=== PATIENT | male | born 1940 | race Caucasian/White ===

== ENCOUNTER 2020-01-30 08:52 | Outpatient (CLI) | payer MEDICARE, SELFPAY ==
--- NOTE | ~2020-01-30 | US_ITS ---
EXAMINATION: US carotid duplex BI DATE: 01/30/2020 10:02 INDICATION: Occlusion of left carotid artery. TECHNIQUE: Grayscale, color Doppler, and pulsed Doppler images of the cervical carotid arteries were obtained. The degree of vessel stenosis is placed in one of the following categories: normal, <50%, 5 0-69%, >=70% but less than near-occlusion, near-occlusion, or total occlusion. Note that percent sten osis relative to normal distal artery lumen diameter is indirectly measured from velocity measurement s as described by Bartolome, et al. Radiology 2003; 229:340-346. COMPARISON: None. FINDINGS: RIGHT: The right common carotid artery (CCA) peak systolic velocity (PSV) is 57 cm/s. The right internal car otid artery (ICA) PSV is 108 cm/s. The right ICA end-diastolic velocity (EDV) is 18 cm/s. The right I CA/CCA PSV ratio is 1.9. Grayscale and color Doppler images yield an estimate of <50% diameter reduct ion from plaque in the ICA. There is antegrade flow in the right vertebral artery. LEFT: The left CCA PSV is 43 cm/s. The left ICA is totally occluded. There is antegrade flow in the left ve rtebral artery. IMPRESSION: 1. <50% stenosis in the right internal carotid artery. 2. 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 Reviewed, dictated and finalized at location B.
== END 2020-01-30 08:53 | disposition home or self-care (01) ==
PROVIDERS: PCP Family Medicine
DX: I65.23 Occlusion and stenosis of bilateral carotid arteries (principal)
CPT/HCPCS: 93880

== ENCOUNTER 2021-01-09 12:54 | Outpatient (CLI) | payer MEDICARE, SELFPAY | END 2021-01-09 12:55 | disposition home or self-care (01) | LOC: ANHAUDIO 12:56 | PROVIDERS: PCP Family Medicine; Visit Provider Nurse Practitioner | DX: H91.90 Unspecified hearing loss, unspecified ear (principal) | CPT/HCPCS: 99199 ==

== ENCOUNTER 2021-01-14 09:23 | Outpatient (CLI) | payer MEDICARE, SELFPAY | END 2021-01-14 09:24 | disposition home or self-care (01) | LOC: ANHAUDIO 09:25 | PROVIDERS: PCP Family Medicine; Visit Provider Nurse Practitioner | DX: H90.3 Sensorineural hearing loss, bilateral (principal) | CPT/HCPCS: 92557; 92567 ==

== ENCOUNTER 2021-02-08 10:12 | Outpatient (CLI) | payer MEDICARE, SELFPAY ==
--- NOTE | ~2021-02-08 | US_ITS ---
EXAMINATION: US carotid duplex BI DATE: 02/08/2021 10:45 INDICATION: Bilateral carotid artery stenosis with bilateral carotid bruits TECHNIQUE: Grayscale, color Doppler, and pulsed Doppler images of the cervical carotid arteries were obtained. The degree of vessel stenosis is placed in one of the following categories: normal, <50%, 5 0-69%, >=70% but less than near-occlusion, near-occlusion, or total occlusion. Note that percent sten osis relative to normal distal artery lumen diameter is indirectly measured from velocity measurement s as described by Bartolome, et al. Radiology 2003; [id number]:[id number]. COMPARISON: 01/30/2020 FINDINGS: RIGHT: The right common carotid artery (CCA) peak systolic velocity (PSV) is 81 cm/s. The right internal car otid artery (ICA) PSV is 104 cm/s. The right ICA end-diastolic velocity (EDV) is 18 cm/s. The right I CA/CCA PSV ratio is 1.5. Grayscale and color Doppler images yield an estimate of <50% diameter reduct ion from plaque in the ICA. The external carotid artery (ECA) PSV is 146 cm/s. There is antegrade zachary w in the right vertebral artery. LEFT: The left CCA PSV is 85 cm/s. Persistent complete occlusion of the left internal carotid artery with s wirling high resistance flow at the left carotid bulb. The ECA PSV is 199 cm/s. There is antegrade fl ow in the left vertebral artery. IMPRESSION: 1. <50% stenosis in the right internal carotid artery. 2. 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 Reviewed, dictated and finalized at location A.
== END 2021-02-08 10:13 | disposition home or self-care (01) ==
LOC: ANHIMG 10:17
PROVIDERS: PCP Family Medicine
DX: I65.23 Occlusion and stenosis of bilateral carotid arteries (principal)
CPT/HCPCS: 93880

== ENCOUNTER 2021-08-06 08:28 | Outpatient (CLI) | payer MEDICARE, SELFPAY ==
--- NOTE | ~2021-08-06 | US_ITS ---
EXAMINATION: US aorta DATE: 08/06/2021 09:08 INDICATION: Abdominal aortic aneurysm without rupture TECHNIQUE: Grayscale, color Doppler, and pulsed Doppler images of the aorta and common iliac arteries were obtained. COMPARISON: 11/26/2018 FINDINGS: Maximum vascular dimensions are as follows: Proximal aorta: 2.7 cm Mid aorta: 2.6 cm Distal aorta: 3.5 cm Right common iliac artery: 1.5 cm Left common iliac artery: 1.6 cm There is a 3.5 x 2.5 cm fusiform aneurysm of the distal abdominal aorta with slight increase in trans verse dimension since the comparison examination. IMPRESSION: 1. 3.5 cm fusiform aneurysm of the distal abdominal aorta with increase in transverse dimensions comp [facility]. Reviewed, dictated and finalized at location A. TESTER IMPRESSION: 1. 3.5 cm fusiform aneurysm of the distal abdominal aorta with increase in ewing sverse dimensions comparison examination.
--- NOTE | ~2021-08-06 | US_ITS ---
EXAMINATION: US art doppler w press LE BI DATE: 08/06/2021 09:39 INDICATION: Peripheral vascular disease. TECHNIQUE: Segmental pressures and plethysmographic and Doppler waveforms of the brachial and lower e xtremity arteries were obtained. COMPARISON: None. FINDINGS: Right and left brachial artery pressures of 195 mm Hg and 186 mm Hg, respectively, are concordant (no rmal difference <= 30 mmHg). The right and left high-thigh pressure indices are unable to be obtained due to inability to occlude the vessels. The right ankle-brachial index (JORGE) is 1.07 (normal >= 0.9-1). The right great toe-brachial index (T BI) is 0.99 (normal >= 0.6-0.8). The right lower extremity segmental pressure gradients are unable to be obtained due to inability to occlude the vessels above the ankle (normal gradients <= 20-30 mmHg between adjacent levels on the same leg or the same levels on the two legs). Arterial waveforms are b iphasic with brisk systolic upstrokes throughout the arteries of the right lower limb. The left JORGE is 1.09. The left TBI is 0.78. The left lower extremity segmental pressure gradients are normal in the left lower leg. Arteries in the left thyroid were unable to be occluded. Arterial wave forms are biphasic with brisk systolic upstrokes throughout the arteries of the left lower limb. IMPRESSION: 1. Normal JORGE's and TBI's bilaterally. No significant occlusive disease. Reviewed, dictated and finalized at location A. 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
== END 2021-08-06 08:29 | disposition home or self-care (01) ==
LOC: ANHIMG 08:29
PROVIDERS: PCP Family Medicine; Visit Provider Family Medicine
DX: I71.4 Abdominal aortic aneurysm, without rupture (principal); I73.9 Peripheral vascular disease, unspecified
CPT/HCPCS: 76775; 93923

== ENCOUNTER 2022-01-31 07:48 | Outpatient (CLI) | payer MEDICARE, SELFPAY ==
--- NOTE | ~2022-01-31 | US_ITS ---
EXAMINATION: US aorta DATE: 01/31/2022 09:43 INDICATION: Abdominal aortic aneurysm TECHNIQUE: Grayscale, color Doppler, and pulsed Doppler images of the aorta and common iliac arteries were obtained. COMPARISON: 08/06/2021 FINDINGS: Maximum vascular dimensions are as follows: Proximal aorta: 2.0 cm Mid aorta: Not well demonstrated Distal aorta: 3.5 cm Right common iliac artery: 1.1 cm Left common iliac artery: 1.0 cm There is a stable fusiform infrarenal abdominal aortic aneurysm. IMPRESSION: 1. Stable fusiform infrarenal abdominal aortic aneurysm. Reviewed, dictated and finalized at location A.
[2022-01-31 08:10] LABS: Basophils Percent Auto 0.8 % (0.2-1.2); Eosinophils Absolute Auto 0.1 K/mm3 (0-0.3); Eosinophils Percent Auto 1.5 % (0-4.4); Hematocrit 46.6 % (42.0-52.0); Hemoglobin 14.4 g/dL (14.0-18.0); Immature Granulocyte Absolute 0.02 K/mm3 (0.00-0.031); Immature Granulocyte Percent A 0.4 % (0-0.5); Lymphocytes Absolute Auto 1.59 K/mm3 (0.9-3.2); Lymphocytes Percent Auto 30.2 % (18.3-44.2); Mean Corpuscular HGB Conc 30.9 g/dl (32-36); Mean Corpuscular Hemoglobin 34.3 pg (26-34); Mean Platelet Volume 10.6 fl (7.4-10.4); Monocytes Absolute Auto 0.4 K/mm3 (0.1-0.6); Monocytes Percent Auto 8.3 % (2.6-8.5); Neutrophils Absolute Auto 3.1 K/mm3 (1.3-6.7); Neutrophils Percent Auto 58.8 % (45.5-73.1); Platelet Count Result 139 k/mm3 (150-375); Red Cell Distribution Width 12.6 % (11.5-14.5); White Blood Count 5.3 K/mm3 (4.5-10.0)
[2022-01-31 08:19] LABS: Alanine Aminotransferase 33 U/L (6-50); Albumin Level 4.1 g/dL (3.5-5.1); Alkaline Phosphatase 79 U/L (38-126); Anion Gap 7 mmol/L (8-16); Aspartate Amino Transferase 37 U/L (17-59); Bilirubin,Total 0.6 mg/dL (0.2-1.3); Blood Urea Nitrogen 21 mg/dL (9-20); Calcium 9.8 mg/dL (8.4-10.2); Carbon Dioxide 26 mmol/L (22-30); Chloride 105 mmol/L (98-107); Cholesterol 145 mg/dL (0-200); Estimated Glomerular Filt Rate 58; Glucose 118 mg/dL (65-110); HDL Direct 35 mg/dL; Hemoglobin A1C 6.1 % (<5.7); Potassium 4.9 mmol/L (3.4-5.0); Sodium 138 mmol/L (137-145); Triglycerides 116 mg/dL (<150)
[2022-01-31 08:23] LABS: Platelet Estimate Adequate (Adequate)
[2022-01-31 08:24] LABS: Anisocytosis 1+ (NORMAL)
[2022-01-31 08:30] LABS: LDL Cholesterol Direct 71 mg/dL
[2022-01-31 08:50] LABS: Prostate Specific Antigen 0.9 ng/mL (< OR = 4.0)
[2022-01-31 08:59] LABS: Vitamin D 25 Hydroxy 78.8 ng/mL
== END 2022-01-31 07:49 | disposition home or self-care (01) ==
PROVIDERS: PCP Family Medicine; Visit Provider Family Medicine
DX: E78.5 Hyperlipidemia, unspecified (principal); Z12.5 Encounter for screening for malignant neoplasm of prostate; E53.8 Deficiency of other specified B group vitamins; R73.03 Prediabetes; E55.9 Vitamin D deficiency, unspecified; I12.9 Hypertensive chronic kidney disease with stage 1 through stage 4 chronic kidney disease, or unspecified chronic kidney disease; N18.31 Chronic kidney disease, stage 3a; I71.4 Abdominal aortic aneurysm, without rupture
CPT/HCPCS: 36415; 76775; 80053; 80061; 82306; 82607; 83036; 84153; 84443; 85025; G0103

== ENCOUNTER 2022-07-24 11:36 | Outpatient (CLI) | payer MEDICARE, SELFPAY ==
[2022-07-24 20:51] LABS: Alanine Aminotransferase 33 U/L (6-50); Albumin Level 4.2 g/dL (3.5-5.1); Alkaline Phosphatase 68 U/L (38-126); Anion Gap 2 mmol/L (8-16); Aspartate Amino Transferase 44 U/L (17-59); Bilirubin,Total 0.8 mg/dL (0.2-1.3); Blood Urea Nitrogen 31 mg/dL (9-20); Calcium 9.8 mg/dL (8.4-10.2); Carbon Dioxide 31 mmol/L (22-30); Chloride 102 mmol/L (98-107); Estimated Glomerular Filt Rate 45; Glucose 93 mg/dL (65-110); Potassium 5.1 mmol/L (3.4-5.0); Sodium 135 mmol/L (137-145)
[2022-07-24 22:34] LABS: Hemoglobin A1C 6.1 % (<5.7)
== END 2022-07-24 11:37 | disposition home or self-care (01) ==
LOC: ANHGOSHLAB 11:38
PROVIDERS: PCP Family Medicine; Visit Provider Family Medicine
DX: R73.03 Prediabetes (principal); I10 Essential (primary) hypertension
CPT/HCPCS: 36415; 80053; 83036

== ENCOUNTER 2023-02-02 14:20 | Outpatient (CLI) | payer MEDICARE, SELFPAY ==
[2023-02-02 19:05] LABS: Basophils Absolute Auto 0.1 K/mm3 (0.0-0.1); Basophils Percent Auto 0.8 % (0.2-1.2); Eosinophils Absolute Auto 0.1 K/mm3 (0-0.3); Eosinophils Percent Auto 1.6 % (0-4.4); Hematocrit 42.2 % (42.0-52.0); Hemoglobin 13.6 g/dL (14.0-18.0); Immature Granulocyte Absolute 0.02 K/mm3 (0.00-0.031); Immature Granulocyte Percent A 0.3 % (0-0.5); Lymphocytes Absolute Auto 1.31 K/mm3 (0.9-3.2); Mean Corpuscular HGB Conc 32.2 g/dl (32-36); Mean Corpuscular Hemoglobin 34.4 pg (26-34); Mean Corpuscular Volume 106.8 fl (80-100); Mean Platelet Volume 10.7 fl (7.4-10.4); Monocytes Absolute Auto 0.6 K/mm3 (0.1-0.6); Monocytes Percent Auto 9.6 % (2.6-8.5); Neutrophils Absolute Auto 4.2 K/mm3 (1.3-6.7); Neutrophils Percent Auto 66.7 % (45.5-73.1); Platelet Count Result 161 k/mm3 (150-375); Red Blood Count 3.95 M/mm3 (4.6-6.20); Red Cell Distribution Width 12.6 % (11.5-14.5); White Blood Count 6.2 K/mm3 (4.5-10.0)
[2023-02-02 19:31] LABS: Macrocytosis 1+ (NORMAL); Platelet Estimate Adequate (Adequate); Schistocytes None Seen (NORMAL)
[2023-02-02 19:55] LABS: Alanine Aminotransferase 55 U/L (6-50); Albumin Level 4.1 g/dL (3.5-5.1); Alkaline Phosphatase 83 U/L (38-126); Anion Gap 4 mmol/L (8-16); Aspartate Amino Transferase 59 U/L (17-59); Bilirubin,Total 0.5 mg/dL (0.2-1.3); Blood Urea Nitrogen 26 mg/dL (9-20); Calcium 9.6 mg/dL (8.4-10.2); Carbon Dioxide 30 mmol/L (22-30); Chloride 103 mmol/L (98-107); Estimated Glomerular Filt Rate 42; Glucose 125 mg/dL (65-110); Potassium 4.7 mmol/L (3.4-5.0); Sodium 137 mmol/L (137-145)
[2023-02-03 00:10] LABS: Hemoglobin A1C 6.1 % (<5.7)
[2023-02-05 15:50] LABS: Testosterone Free 20.5 pg/mL (30.0-135.0); Testosterone Total 103 ng/dL (250-1100)
== END 2023-02-02 14:21 | disposition home or self-care (01) ==
LOC: ANHGOSHLAB 14:22
PROVIDERS: PCP Family Medicine; Visit Provider Nurse Practitioner Family
DX: Z00.00 Encounter for general adult medical examination without abnormal findings (principal); I10 Essential (primary) hypertension; E29.1 Testicular hypofunction; Z13.29 Encounter for screening for other suspected endocrine disorder; R73.03 Prediabetes; Z13.1 Encounter for screening for diabetes mellitus
CPT/HCPCS: 36415; 80053; 83036; 84402; 84403; 84443; 85025

== ENCOUNTER 2023-08-10 13:45 | Outpatient (CLI) | payer MEDICARE, SELFPAY ==
[2023-08-10 18:34] LABS: Hematocrit 47.2 % (42.0-52.0); Hemoglobin 15.1 g/dL (14.0-18.0); Mean Corpuscular Hemoglobin 34.2 pg (26-34); Mean Corpuscular Volume 106.8 fl (80-100); Mean Platelet Volume 10.7 fl (7.4-10.4); Platelet Count Result 169 k/mm3 (150-375); Red Blood Count 4.42 M/mm3 (4.6-6.20); Red Cell Distribution Width 12.1 % (11.5-14.5); White Blood Count 7.8 K/mm3 (4.5-10.0)
[2023-08-10 19:54] LABS: Vitamin D 25 Hydroxy 56.7 ng/mL
[2023-08-10 22:00] LABS: Alanine Aminotransferase 41 U/L (6-50); Albumin Level 4.1 g/dL (3.5-5.1); Alkaline Phosphatase 85 U/L (38-126); Anion Gap 9 mmol/L (8-16); Aspartate Amino Transferase 53 U/L (17-59); Bilirubin,Total 0.7 mg/dL (0.2-1.3); Blood Urea Nitrogen 23 mg/dL (9-20); Calcium 10.1 mg/dL (8.4-10.2); Carbon Dioxide 26 mmol/L (22-30); Chloride 104 mmol/L (98-107); Estimated Glomerular Filt Rate 39; Glucose 103 mg/dL (65-110); Potassium 4.8 mmol/L (3.4-5.0); Sodium 139 mmol/L (137-145)
[2023-08-13 07:18] LABS: Testosterone Free 237.1 pg/mL (6.0-73.0)
== END 2023-08-10 13:46 | disposition home or self-care (01) ==
LOC: ANHGOSHLAB 13:47
PROVIDERS: PCP Family Medicine; Visit Provider Nurse Practitioner Family
DX: E55.9 Vitamin D deficiency, unspecified (principal); E53.8 Deficiency of other specified B group vitamins; E29.1 Testicular hypofunction; I12.9 Hypertensive chronic kidney disease with stage 1 through stage 4 chronic kidney disease, or unspecified chronic kidney disease; N18.30 Chronic kidney disease, stage 3 unspecified; Z13.21 Encounter for screening for nutritional disorder
CPT/HCPCS: 36415; 80053; 82306; 82607; 84402; 85027

== ENCOUNTER 2023-10-12 11:35 | Outpatient (CLI) | payer MEDICARE, SELFPAY ==
[2023-10-15 09:59] LABS: Testosterone Free 39.3 pg/mL (30.0-135.0); Testosterone Total 189 ng/dL (250-1100)
== END 2023-10-12 11:36 | disposition home or self-care (01) ==
LOC: ANHLAB 11:38
PROVIDERS: PCP Family Medicine; Visit Provider Nurse Practitioner Family
DX: E29.1 Testicular hypofunction (principal)
CPT/HCPCS: 36415; 84402; 84403

== ENCOUNTER 2023-10-29 12:49 | Outpatient (CLI) | payer MEDICARE, SELFPAY ==
--- NOTE | ~2023-10-29 | XR_ITS ---
EXAMINATION: XR lumbar spine 2-3V DATE: 10/29/2023 13:24 INDICATION: Sciatica, unspecified site. TECHNIQUE: 3 views of lumbar spine were obtained. COMPARISON: None. FINDINGS: There is 9 degrees dextrocurvature of lumbar spine. There is a chronic compression fracture of L4 on the left. There is mild chronic anterior wedging of L1 vertebral body. There are endplate o steophytes at all levels. There is mildly decreased disc height at L5-S1. There is multilevel severe facet joint osteoarthritis. IMPRESSION: 1. Mild lumbar spondylosis. Reviewed, dictated and finalized at location A. IMPRESSION: 1. Mild lumbar spondylosis.
--- NOTE | ~2023-10-29 | XR_ITS ---
EXAMINATION: XR knee LT 3V DATE: 10/29/2023 13:24 INDICATION: Anesthesia skin. TECHNIQUE: 3 views on 4 radiographs of left knee including weight-bearing views were obtained. COMPARISON: None. FINDINGS: Bone alignment is normal. No fracture. There is severe osteoarthritis of lateral compartmen t and mild osteoarthritis of medial and patellofemoral compartments. No knee joint effusion. IMPRESSION: 1. Severe left knee osteoarthritis. Reviewed, dictated and finalized at location A.
== END 2023-10-29 12:50 | disposition home or self-care (01) ==
PROVIDERS: PCP Family Medicine; Visit Provider Nurse Practitioner Family
DX: M17.12 Unilateral primary osteoarthritis, left knee (principal); M43.06 Spondylolysis, lumbar region; N18.31 Chronic kidney disease, stage 3a; R20.0 Anesthesia of skin; R20.2 Paresthesia of skin; Z86.73 Personal history of transient ischemic attack (TIA), and cerebral infarction without residual deficits
CPT/HCPCS: 72100; 73562

== ENCOUNTER 2023-11-18 13:01 | Outpatient (CLI) | payer MEDICARE, SELFPAY ==
--- NOTE | 2023-11-18 14:30 | NEURO_ITS ---
Impression: # Complains of numbness of lower extremities. Not diabetic. 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 # Needle/EMG exam with neurogenic changes but no fibs. # Clinical correlation recommended. Nerve Conduction Studies Anti Sensory Summary Table Stim Site NR Peak (ms) P-T Amp (?V) Site1 Site2 Delta-P (ms) Dist (cm) Hal (m/s) Left Sup Fibular Anti Sensory (Ant Lat Mall) NO RESPONSE 14 cm NR 14 cm Ant Lat Mall 16.0 Right Sup Fibular Anti Sensory (Ant Lat Mall) 14 cm 4.2 5.7 14 cm Ant Lat Mall 4.2 16.0 38 Left Sural Anti Sensory (Lat Mall) NO RESPONSE Calf NR Calf Lat Mall 16.0 Right Sural Anti Sensory (Lat Mall) Calf 3.9 10.4 Calf Lat Mall 3.9 16.0 41 Motor Summary Table Stim Site NR Onset (ms) O-P Amp (mV) Site1 Site2 Delta-0 (ms) Dist (cm) Hal (m/s) Left Peroneal Motor (Vastus Med) Ankle 4.1 1.3 Popit Ankle 10.7 45.0 42 Popit 14.8 0.8 Right Peroneal Motor (Vastus Med) Ankle 4.0 0.9 Popit Ankle 10.8 44.0 41 Popit 14.8 0.6 Left Tibial Motor (Abd Garibay Brev) Ankle 4.2 0.5 Knee Ankle 12.9 44.0 34 Knee 17.1 0.6 Right Tibial Motor (Abd Garibay Brev) Ankle 4.5 2.3 Knee Ankle 11.2 44.0 39 Knee 15.7 1.0 F Wave Studies NR F-Lat (ms) L-R F-Lat (ms) Left Peroneal (Mrkrs) (EDB) DISPERSED RESPONSE NR Right Peroneal (Mrkrs) (EDB) DISPERSED RESPONSE NR Left Tibial (Mrkrs) (Abd Hallucis) DISPERSED RESPONSE NR Right Tibial (Mrkrs) (Abd Hallucis) DISPERSED RESPONSE NR EMG Side Muscle Nerve Root Ins Act Fibs Amp Dur Recrt Comment Right AntTibialis Dp Br Fibular L4-5 Nml Nml Incr >12ms +2 Right Gastroc Tibial S1-2 Nml Nml Incr >12ms +2 Right Fibularis Long Sup Br Fibular L5-S1 Nml Nml Incr >12ms +2 Right Flex Dig Long Tibial L5-S2 Nml Nml Incr >12ms +2 Right Ext Dig Brev Dp Br Fibular L5, S1 Nml Nml Incr >12ms +2 Left AntTibialis Dp Br Fibular L4-5 Nml Nml Incr >12ms +2 Left Gastroc Tibial S1-2 Nml Nml Incr >12ms +2 Left Fibularis Long Sup Br Fibular L5-S1 Nml Nml Incr >12ms +2 Left Flex Dig Long Tibial L5-S2 Nml Nml Incr >12ms +2 Left Ext Dig Brev Dp Br Fibular L5, S1 Nml Nml Incr >12ms +2 Right QuadratusFem QuadFemoris L4-5, S1 Nml Nml Incr >12ms +1 Left QuadratusFem QuadFemoris L4-5, S1 Nml Nml Incr >12ms +1 MTDD
== END 2023-11-18 13:02 | disposition home or self-care (01) ==
LOC: ANHNEURO 13:03
PROVIDERS: PCP Family Medicine; Visit Provider Nurse Practitioner Family
DX: G62.9 Polyneuropathy, unspecified (principal); N18.31 Chronic kidney disease, stage 3a; Z86.73 Personal history of transient ischemic attack (TIA), and cerebral infarction without residual deficits
CPT/HCPCS: 95886; 95910

== ENCOUNTER 2024-09-26 14:13 | Outpatient (CLI) | payer MEDICARE, SELFPAY ==
--- OUTSIDE RECORDS SUMMARY | 2024-09-26 16:17 | XMS_ITS | Referral Summary ---
Author Organization [facility] [address] Address [address] [place] [address] Care Team Providers Care Deputy County Attorney Name Role Phone Ashley Copeland MD Primary Care Provider Allergies No known active allergies Medications atorvastatin (LIPITOR) 40 mg tablet 2 8 Active aspirin 81 mg tablet Take 81 mg by mouth daily. Active multivitamin-min erals-lutein tablet Take 1 tablet by mouth daily. Active testosterone enanthate 200 mg/mL injection Inject 200 mg into the muscle as instructed every 28 (twenty-eight) days Active valsartan (DIOVAN) 320 mg tablet Take 1 tablet (320 mg total) by mouth daily 90 tablet 3 1 Active testosterone cypionate (DEPO-TESTOTERON E) 200 mg/mL injection Inject 200 mg into the muscle as instructed every 30 (thirty) days 2 Active Eliquis 5 mg tabletIndication s:Atrial fibrillation, unspecified type (HCC) Take 1 tablet by mouth twice daily 180 tablet 2 Active metoprolol XL (TOPROL-XL) 25 mg extended release tabletIndication s:Atrial fibrillation, unspecified type (HCC) Take 1 tablet (25 mg total) by mouth daily 90 tablet 2 Active cholecalciferol (VITAMIN D-3) 1,000 unit capsule 1 Active amiodarone (PACERONE) 200 mg tablet Take 1 tablet (200 mg total) by mouth daily 90 tablet 3 Active Active Problems Problem Noted Date Diagnosed Date Repeated falls 08/02/2021 Idiopathic peripheral neuropathy 08/02/2021 Lumbar back pain 08/02/2021 Abnormality of gait and mobility 08/02/2021 Dizziness 12/19/2020 Dyspnea on exertion 12/19/2020 Atrial fibrillation 11/12/2017 Diastolic dysfunction without heart failure 10/21 Non-rheumatic mitral regurgitation 11/12/2017 Bilateral carotid artery disease 11/12/2017 Dyslipidemia 11/12/2017 ELI on CPAP 11/12/2017 Essential hypertension 11/12/2017 Aneurysm of infrarenal abdominal aorta 8 History of CVA (cerebrovascular accident) 2017 History of right-sided carotid endarterectomy Social History Tobacco Use Types Packs/Day Years Used Date Smoking Tobacco: Former Smokeless Tobacco: Never Tobacco Cessation:Counseling Given: Not Answered Alcohol Use Standard Drinks/Week Comments Yes 8 (1 standard drink = 0.6 oz pur e alcohol) AUDIT-C Answer Date Recorded Q1: How often do you have a drink containing alc ohol? Monthly or less 02/26/2022 Q2: How many drinks containi ng alcohol do you have on a typical day when you are drinking? 1 or 2 02/26/2022 Q3: How often do you have si x or more drinks on one occasion? 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 Gender Identity Male 04/01/2021 4:10 PM CDT Sexual Orientation Straight 04/01/2021 4: 10 PM CDT Last Filed Vital Signs Vital Sign Reading Time Taken Comments Blood Pressure 132/70 02/26/2022 8:56 AM CDT Pulse 51 02/26/2022 8:56 AM CDT Temperature 36.7 C (98 F) 02/26/2022 8:56 AM CDT Respiratory Rate - - Oxygen Saturation 97% 02/26/2022 8:56 AM CDT Inhaled Oxygen Concentration - - Weight 103.6 kg (228 lb 6.4 oz) 02/26/2022 8:56 AM CDT Height 182.9 cm (6') 02/26/2022 8:56 AM CDT Body Mass Index 30.98 02/26/2022 8:56 AM CDT Plan of Treatment Not on file Insurance MEDICARE [facility] Care Teams Deputy County Attorney Relationship Specialty Start Date End Date Ashley Copeland MD PCP - General Family Practice 10/21/17
--- OUTSIDE RECORDS SUMMARY | 2024-09-26 16:17 | XMS_ITS | Clinical Summary ---
Author Organization [employer] Address [address] [place] [address] Care Team Providers Care Customer Strategy Manager Name Role Phone Slade Ortiz MD Primary Care Provider [phone] Source Comments [employer],non-owned Affiliates and Associated Physician Practices is amultiple site organization consisting of ambulatory clinics and hospital sitesin [place], [place], [place] and [place]. This disclosure is being madepursuant to the Care Everywhere program and may not contain all information available regarding this patient. Last updated 18.[employer] Allergies No known active allergies Medications Be aware that medications may not be up to date on this document. Always verify current medications with the patient. No known medications Active Problems Problem Noted Date Diagnosed Date Occlusion and stenosis of left carotid artery Occlusion and stenosis of right carotid artery 0 10/31/2013 Cerebral infarction 10/15/2013 Immunizations Name Administration Dates Next Due PNEUMOCOCCAL PPSV23 2013 Social History Tobacco Use Types Packs/Day Years Used Date Smoking Tobacco: Former Cigarettes Q uit: 07/14/2013 Alcohol Use Standard Drinks/Week Comments No 0 (1 standard drink = 0.6 oz pur e alcohol) Sex and Gender Information Value Date Recorded Sex Assigned at Male 04/05/2021 8:35 AM CDT Gender Identity Male 04/05/2021 8:35 AM CDT Sexual Orientation Straight 04/05/2021 8: 35 AM CDT Last Filed Vital Signs Vital Sign Reading Time Taken Comments Blood Pressure 158/67 01/03/2015 1:55 PM CDT Pulse 59 01/03/2015 1:55 PM CDT Temperature 36.4 C (97.6 F) 01/03/2015 1:55 PM CDT Respiratory Rate 20 10/15/2013 8:27 AM CDT Oxygen Saturation 97% 01/03/2015 1:55 PM CDT Inhaled Oxygen Concentration - - Weight 100.2 kg (221 lb) 01/03/2015 1:55 PM CDT Height 182.9 cm (6') 01/03/2015 1:55 PM CDT Body Mass Index 29.97 01/03/2015 1:55 PM CDT Plan of Treatment Health Maintenance Due Date Last Done Comments MEDICARE AWV 12 MONTHS 1942 DTAP/TDAP/TD VACCINES (1 - Tdap) 1961 ZOSTER VACCINE (1 of 2) 1992 PNEUMOCOCCAL VACCINE 50+ (2 of 2 - PCV) 2014 2013 Respiratory Syncytial Virus (RSV) Vaccine Pt: or over 60 yrs (1 - 1-dose 75+ series) 2017 COVID-19 VACCINE (3 - 2023-2 5 season) 2024 09/11/2020, 08/14/2020 DEPRESSION SCREENING 06/22/2024 INFLUENZA VACCINE (Season Ended) 2025 11/17/2021 HEPATITIS B VACCINE Aged Out No longe r eligible based on patient's age to complete this topic HIB VACCINE Aged Out No longer eligi ble based on patient's age to complete this topic HPV VACCINE Aged Out No longer eligi ble based on patient's age to complete this topic MENINGOCOCCAL (Group B) VACCINE SHARED DECISION-MAKING Aged Out No longer eligible based on patient's age to complete this topic MENINGOCOCCAL GROUPS A/C/Y/W VACCINE Aged Out No longer eligible b ased on patient's age to complete this topic Care Teams Customer Strategy Manager Relationship Specialty Start Date End Date Slade Ortiz MD [address] [place] [address] PCP - General 10/11/13
--- OUTSIDE RECORDS SUMMARY | 2024-09-26 16:17 | XMS_ITS | Clinical Summary ---
Author Organization [facility] Address [address], [facility] [address] [place] [address] Phone Care Team Providers Care Website Designer Name Role Phone Marty Ortiz MD Primary Care Provider [phone] Sebastian Pina DO Unavailable [phone] Allergies No known active allergies Medications polyethylene glycol (MIRALAX) Powder Mix the entire bottle with 64 oz of a clear liquid. Use as directed by the office for colonoscopy prep. 255 g 0 6 Active atorvastatin (LIPITOR) 40 MG Tablet Take 40 mg by mouth daily. Active aspirin 325 MG Tablet Take 325 mg by mouth daily. Active MULTIPLE VITAMINS PO Take by mouth. Act bennie Immunizations Immunization Administration Dates Next Due Covid-19, Mrna, Lnp-s, PF, 1 00 mcg/0.5 mL Dose (Moderna) 09/11/2020,08/14/2020 Social History Tobacco Use Types Packs/Day Years Used Date Smoking Tobacco: Former Cigarettes 1 40 1 - 03/31/2014 Alcohol Use Standard Drinks/Week Comments Yes 0 (1 standard drink = 0.6 oz pur e alcohol) Sex and Gender Information Value Date Recorded Sex Assigned at Not on file Legal Sex Male 1:36 PM CDT Gender Identity Not on file Sexual Orientation Not on file Plan of Treatment Health Maintenance Due Date Last Done Comments Hepatitis C Virus (HCV) Screening 1940 Zoster Immunization (1 of 2) 1992 Respiratory Syncytial Virus (RSV) Immunization (Adult) (1 - 1-dose 75+ series) 2017 Pneumococcal Immunization (50+ years) (2 of 2 - PPSV23) 01/26/2021 01/27/2020 Influenza Immunization (#1) 2024 10/0 06/2019, 04/24/2017 SARS-COV-2 Immunization ( season) 2024 05/20/2021, 09/11/2020, 08/14/2020 DTaP/Tdap/Td Immunization Discontinued 01/04/2020 TdaP Immunization Completed 01/04/2020 Pneumococcal Immunization Combined Discontinued 01/27/2020 Hepatitis B Immunization Aged Out No longer eligible based on patient's age to complete this topic Meningococcal Immunization (ACWY) Aged Out No longer eligible based on patient's age to complete this topic Rotavirus Immunization Aged Out No lo nger eligible based on patient's age to complete this topic [place] [address] MEDICARE [facility] Care Teams Website Designer Relationship Specialty Start Date End Date Marty Ortiz MD [address] [place] [address] PCP - General Family Medicine 03/27/16 Sebastian Pina DO [address] [place] [address] Gastroenterology 03/27/16
--- OUTSIDE RECORDS SUMMARY | 2024-09-26 16:17 | XMS_ITS | Encounter Summary ---
Author Organization [facility] Address [address] [place] [address] Care Team Providers Care Roll Machine Operator Name Role Phone Ashley Copeland MD Primary Care Provider Victor Hugo Thomson MD Unavailable Encounter Details Date Type Department Care Team (Late st Contact Info) Description 07/28/2022 [employer] Message Enc [facility] [address] [address] [facility] Provider lab results Social History Tobacco Use Types Packs/Day Years Used Date Smoking Tobacco: Unknown Alcohol Use Standard Drinks/Week Comments Not Currently 0 (1 standard drink = 0.6 oz pur e alcohol) Sex and Gender Information Value Date Recorded Sex Assigned at Male 10/30/2023 7:57 AM CDT Legal Sex Male 8:28 AM CDT Gender Identity Not on file Sexual Orientation Bisexual 10/30/2023 7: 57 AM CDT COVID-19 Exposure Response Date Recorded In the last 10 days, have yo u been in contact with someone who was confirmed or suspected to have Coronavirus/COVID-19? No / Unsure 07/29/2022 12:46 PM SKID WORKER documented as of this encounter Functional Status * RETIRED Are you deaf or do you have serious difficulty hearing Answer Date of Assessment Author Status No 04/15/2022 8:00 PM CDT Activ e * RETIRED Are you blind or do you have serious difficulty seeing, even when wearing glasses? Answer Date of Assessment Author Status No 04/15/2022 8:00 PM CDT Activ e * Do you have serious difficulty walking or climbing stairs? Answer Date of Assessment Author Status No 04/15/2022 8:00 PM CDT Cristian, Bird C, R N Active * Do you have difficulty dressing or bathing? Answer Date of Assessment Author Status No 04/15/2022 8:00 PM CDT Cristian, Bird C, R N Active * Because of a physical, mental, or emotional condition, do you have difficulty doing errands alone such as visiting a doctor's office or shopping? Answer Date of Assessment Author Status No 04/15/2022 8:00 PM CDT Cristian, Bird C, R N Active documented as of this encounter Mental Status * Because of a physical, mental, or emotional condition, do you have serious difficulty concentrating, remembering, or making decisions? Answer Entry Date Author Status No 04/15/2022 8:00 PM CDT Cristian Bird C, R N Active documented in this encounter Plan of Treatment Upcoming Encounters Date Type Department Care Team (Late st Contact Info) Description 10/10/2024 2:45 PM CDT Office Visit [facility] [address] [place] [address] Selvin Gill MD [facility], [address] [place] [address] 11/08/2024 11:15 AM CDT Office Visit [facility] [address] [place] [address] Victor Hugo Thomson MD [facility] [address] [place] [address] 12/19/2024 2:05 PM CDT [facility] [address] [place] [address] Victor Hugo Thomson MD [facility] [address] [place] [address] documented as of this encounter Goals Goal Patient Goal Type Associated Problems Recent Progress Patient-Stated? Author Patient will return to prior living situation and remain independent in ADLs upon discharge from hospital Lifestyle No Melba Sumner RN documented as of this encounter Visit Diagnoses Not on filedocumented in this encounter Additional Health Concerns Infection Onset Date Last Indicated Resolved Time COVID-19 Rule Out 11/27/2022 11/27/2022 11/27/2022 6:03 PM CDT documented as of this encounter Care Teams Roll Machine Operator Relationship Specialty Start Date End Date Ashley Copeland MD [address] [facility] [address] [place] [address] PCP - General FAMILY PRACTICE 04/15/22 Victor Hugo Thomson MD [facility] [address] [place] [address] Consulting Physician CLINICAL CARDIAC ELECTROPHYSIOLOGY 04/17/24 documented as of this encounter
--- OUTSIDE RECORDS SUMMARY | 2024-09-26 16:17 | XMS_ITS | Clinical Summary ---
Author Organization [facility] Address [address] [place] [address] Care Team Providers Care Security Incident Handler Name Role Phone Ashley Copeland MD Primary Care Provider Victor Hugo Thomson MD Unavailable [phone] Allergies No known active allergies Medications testosterone cypionate (DEPO TESTOSTERONE) 200 MG/ML injection Inject 1 mL (200 mg total) into the muscle monthly. 2 Active valsartan (DIOVAN) 320 MG tablet Take 1 tablet (320 mg total) by mouth daily. Active vitamin D3, cholecalcifero l, 1000 UNIT Tab tablet Take 1 tablet (1,000 Units total) by mouth daily. Active atorvastatin (LIPITOR) 40 MG tablet Take 1 tablet (40 mg total) by mouth nightly at bedtime. Active Thiamine HCl (VITAMIN B-1) 250 MG Tab Take 250 mg by mouth daily. Active multivitamin (THERA) tablet Take 1 tablet by mouth daily. Active aspirin EC (ECOTRIN) 81 MG tablet Take 1 tablet (81 mg total) by mouth daily. Active diphenhydrAMIN E (BENADRYL) 25 MG capsule Take 2 capsules (50 mg total) by mouth nightly as needed for Sleep. Active acetaminophen (TYLENOL) 325 MG tablet Take 2 tablets (650 mg total) by mouth every 6 (six) hours as needed for Pain. Active apixaban (ELIQUIS) 2.5 MG tablet Take 1 tablet (2.5 mg total) by mouth 2 (two) times daily. 180 tablet 3 3 Active vitamin B-12 (B-12) 500 MCG tablet Take 1 tablet (500 mcg total) by mouth daily. Active FLUoxetine (PROZAC) 20 MG capsule Take 1 capsule (20 mg total) by mouth daily. 4 Active Pyridoxine HCl (B-6) 100 MG Tab Active amiodarone (PACERONE) 200 MG tablet Take 1 tablet by mouth once daily 90 tablet 5 Active amLODIPine (NORVASC) 5 MG tablet Take 1 tablet by mouth once daily 90 tablet 1 5 Active amLODIPine (NORVASC) 5 MG tablet Take 1 tablet by mouth once daily 90 tablet 5 025 Discontinued Active Problems Problem Noted Date Diagnosed Date Moderate aortic regurgitation 09/08/2022 Cardiac pacemaker 04/24/2022 Overview (04/24/2022): GEOVANY ZOË PACEMAKER IMPLANTED 04/15/22 FOR [facility] Complete heart block ([facility]) 2 Overview (04/24/2022): GEOVANY ZOË PACEMAKER IMPLANTED 04/15/22 FOR [facility] Bradycardia 04/15/2022 Idiopathic peripheral neuropathy 08/02/2021 Dizziness 12/19/2020 Dyspnea on exertion 12/19/2020 Aneurysm of infrarenal abdominal aorta 8 Atrial fibrillation ([facility]) 11/12/2017 Bilateral carotid artery disease 11/12/2017 Diastolic dysfunction without heart failure 10/21 Dyslipidemia 11/12/2017 Essential hypertension 11/12/2017 Non-rheumatic mitral regurgitation 11/12/2017 ELI on CPAP 11/12/2017 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 Cerebral infarction ([facility]) 10/15/2013 Encounters Date Type Department Care Team Description 09/21/2024 9:30 AM CDT - 09/21/2024 11:59 PM CDT Hospital Encounter [facility] [place] [address] Selvin Gill MD Discharge Disposition: Home or Self Care (Routine Discharge) 09/21/2024 Travel 09/14/2024 Travel 09/13/2024 2:15 PM CDT Allied Health/Nurse Visit [facility] [address], [place] [address] [place] [address] Victor Hugo Thomson MD Remote Device Check 09/07/2024 Telephone [facility] [address], [facility] [address] [place] [address] Kate aVlle MA No Show 08/17/2024 Telephone [facility] [address], [facility] [address] [place] [address] Kate Valle MA Other from Last 3 Months Immunizations Name Administration Dates Next Due Influenza Adult (Generic) 05/28/2021,03/22/2020, 04/24/2017 MODERNA COVID-19 ([employer]CH[employer] BRIGIDA ENZO), MRNA, LNP-S, PF, 50 MCG/ 0.25 ML DOSE 05/20/2021 Pneumococcal (Pneumovax 23) 2013 Pneumococcal (Prevnar 13) 01/27/2020 Pneumococcal (Prevnar 20) 01/31/2022 Tdap (Generic) 01/04/2020 Social History Tobacco Use Types Packs/Day Years Used Date Smoking Tobacco: Former Cigarettes Q uit: 04/26/2015 Tobacco Cessation:Counseling Given: Not Answered Alcohol Use Standard Drinks/Week Comments Not Currently 0 (1 standard drink = 0.6 oz pur e alcohol) Sex and Gender Information Value Date Recorded Sex Assigned at Male 10/30/2023 7:57 AM CDT Legal Sex Male 8:28 AM CDT Gender Identity Not on file Sexual Orientation Bisexual 10/30/2023 7: 57 AM CDT Last Filed Vital Signs Vital Sign Reading Time Taken Comments Blood Pressure 152/78 05/03/2024 10:33 AM PLATE CONDITIONER Pulse 71 05/03/2024 10:33 AM PLATE CONDITIONER Temperature 36.9 C (98.5 F) 11/27/2022 3:04 PM CDT Respiratory Rate 20 11/27/2022 8:10 PM CDT Oxygen Saturation 95% 05/03/2024 10:33 AM PLATE CONDITIONER Inhaled Oxygen Concentration - - Weight 104.3 kg (230 lb) 05/03/2024 10:33 AM PLATE CONDITIONER Height 180.3 cm (5' 11 ) 05/03/2024 10:33 AM PLATE CONDITIONER Body Mass Index 32.08 05/03/2024 10:33 AM PLATE CONDITIONER Plan of Treatment Upcoming Encounters Date Type Department Care Team (Late st Contact Info) Description 10/10/2024 2:45 PM CDT Office Visit [facility] [address] [place] [address] Selvin Gill MD [facility], [facility] [address] [place] [address] 11/08/2024 11:15 AM CDT Office Visit [facility], [facility] [address] [place] [address] Victor Hugo Thomson MD [address] [place] [address] 12/19/2024 2:05 PM CDT Allied Health/Nurse Visit [facility], [facility] [address] [place] [address] Victor Hugo Thomson MD [facility] [address] [place] [address] Health Maintenance Due Date Last Done Comments Zoster Vaccines (1 of 2) 1992 Annual Medicare Wellness Visit 10/13/2007 RSV Immunization or 60+ Years (1 - 1-dose 75+ series) 2017 COVID-19 Vaccine (2023-2 5 season) 2024 05/20/2021, 09/11/2020, 08/14/2020 DTaP, Tdap and Td Vaccines ( 2 - Td or Tdap) 01/03/2030 01/04/2020 Pneumococcal Vaccine: 65+ Years Completed 01/31/2022, 01/27/2020, 2013 Meningococcal B Vaccine Aged Out No l onger eligible based on patient's age to complete this topic Meningococcal Vaccine Aged Out No denise mesfin eligible based on patient's age to complete this topic RSV Immunizations Under 20 Months Aged Out No longer eligible b ased on patient's age to complete this topic Goals Goal Patient Goal Type Associated Problems Recent Progress Patient-Stated? Author Patient will return to prior living situation and remain independent in ADLs upon discharge from hospital Lifestyle No Melba Sumner RN Medical Devices Implanted Type Area Pleater Device Identifier Shelf Expiration Date Model / Serial / Lot Ra Lead-04/15/20 Implanted: by Tristen Lloyd MD (Quantity not on file) Lead Implant [employer] C[employer]HY[employer]M [employer] HEART FAILURE - DIV M 5076-52 / [id number] / Description:APPENDAGE Rv Lead-04/15/20 Implanted: by Tristen Lloyd MD (Quantity not on file) Lead Implant [employer] CARDIAC RHYTHM AND HEART FAILURE - DIV M [id number] / [id number] / t Pacemaker- Implanted: by Tristen Lloyd MD (Quantity not on file) Pacemaker [employer] CARDIAC RHYTHM AND HEART FAILURE - DIV M [id number] / [id number] / Description:PATIENT WANTS TO BE FOLLOWED AT [facility] Procedures Procedure Name Priority Date/Time Associated Diagnosis Comments USE ECHOCARDIOGRAM W CON Routine 09/21/2024 10:26 AM CDT Moderate mitral regurgitation Mild aortic regurgitation from Last 3 Months Results * USE ECHOCARDIOGRAM W CON (09/21/2024 10:26 AM CDT) Anatomical Region Laterality Modality NA Echocardiogram 09/21/2024 9:45 AM CDT Narrative 09/22/2024 3:18 PM CDT Echocardiography Report Pat.Name: MANDIE SUAZO.ID: [id number] St.Date: 09/21/2024 Maria Esther.: [id number] NATHAN PHILLIPS O EWDPROV EWDPROV Exam Time: 9:45:00 AM Study Type:ECHO WITH CARDIAC DOPPLER COMP Height: 71 in Weight: 230 lb BSA: 2.24 m2 Age: 4 1940,83Y Sex: M BP: 148/70 HR: 77 bpm Sonogrphr: Maria Guadalupe Ferris Pat. Stat.:Outpatient Reason for Study:Mitral regurgitation, Aortic regurgitation Procedures: 2D, M-mode, Doppler, Color Flow, Definity was used to enhance endocardial definition. The study quality is technically difficult. Race: W ++++++++++++++++++++++++++++++++++++ SUMMARY: ++++++++++++++++++++++++++++++++++++ The left ventricular size is normal. The left ventricular systolic function is mildly depressed. Estimated left ventricular ejection fraction is 45-50%. Moderate concentric left ventricular hypertrophy. Left ventricular diastolic function is abnormal (grade 2 - pseudonormal pattern). The right ventricular size is normal. Right ventricular systolic function is normal. The left atrial size is moderately enlarged. Mild aortic regurgitation. Moderate mitral regurgitation. Mild mitral valve stenosis. Calcified posterior mitral annulus. The mean gradient across the mitral valve is 4 at a heart rate of 70. Mild tricuspid regurgitation. The peak pulmonary artery systolic pressure is estimated to be approximately 35-40 mmHg suggestive of mild pulmonary hypertension. ++++++++++++++++++++++++++++++++++++ FINDINGS: ++++++++++++++++++++++++++++++++++++ LV: The left ventricular size is normal. The left ventricular systolic function is mildly depressed. Estimated left ventricular ejection fraction is 45-50%. Moderate concentric left ventricular hypertrophy. Left ventricular diastolic function is abnormal (grade 2 - pseudonormal pattern). RV: The right ventricular size is normal. Right ventricular systolic function is normal. IVS: No evidence of ventricular septal defect. LA: The left atrial size is moderately enlarged. The left atrial volume is moderately increased (42-48 ml/M2). RA: Right atrial size is normal. IAS: Atrial septum appears intact. ELIZABETH: No evidence of pericardial effusion. AO: Normal aortic root. PA: The peak pulmonary artery systolic pressure is estimated to be approximately 35-40 mmHg suggestive of mild pulmonary hypertension. Estimated right atrial pressure of 3 mmHg. SVn: Inferior vena cava is normal. AV: No evidence of aortic valve stenosis. Mild aortic regurgitation. Mild calcification of aortic valve leaflets. MV: Moderate mitral regurgitation. Mild mitral valve stenosis. Calcified posterior mitral annulus. The mean gradient across the mitral valve is 4 at a heart rate of 70. PV: No evidence of pulmonic valve stenosis. No evidence of pulmonic regurgitation. TV: Mild tricuspid regurgitation. No evidence of tricuspid valve stenosis. ++++++++++++++++++++++++++++++++++++ MEASUREMENTS: ++++++++++++++++++++++++++++++++++++ DOPPLER LVOT LVOTpkPG 3 mmHg LVOTmnPG 1 mmHg LVOTpkVel 83.1 cm/s (70-110) LVOT SV 52 ml LVOT TVI 16.5 cm AV Forward Flow AV TVI 29.3 cm AV pkPG 9 mmHg AV pkVel 148 cm/s (100-170) Area (TVI) 1.77 cm2 (3-5)* AV mnPG 4 mmHg Area (Hal) 1.76 cm2 (3-5)* MV Forward Flow MV DeTm 194 msec MV pkPG 9 mmHg MVA P1/2t 3.86 cm2 (4-6)* MV E/A 0.8 MV P1/2t 57 msec (30-60)+ MV pkE 113 cm/s (60-130) MV mnPG 4 mmHg MV pkA 141 cm/s MV Regurg Flow MV TVI 198 cm MV pkPG 130 mmHg MV mnPG 80 mmHg MV pkVel 570 cm/s (60-130)+* MV mnVel 418 cm/s PV Forward Flow PV pkVel 106 cm/s (60-90)* PV AC 114 msec PV pkPG 4 mmHg RVOT RVOTpkV 48.5 cm/s TV Regurg Flow TV pkPG 33 mmHg TV pkVel 287 cm/s (30-70)* TV Forward Flow TV E/A 0.7 TV pkA 57.5 cm/s TV pkE 38.7 cm/s Lat E' Lat e 8.16 cm/s Lat E/E' Lat E/e 13.8 Med E' Med e 5.77 cm/s Med E/E' Med E/e 19.6 Aortic Valve Aortic Valve Ar 0.79 Aortic Valve Ve 0.56 PV Antegrade Flow Acceleration Sl 427 cm/s2 Right Atrium Simmons's Disk 20 Right Ventricle Right Ventricle 16.4 cm/s 2D Left Ventricle LVIDd 4.5 cm (3.6-5.2) LV ESV 81.3 ml LVIDs 2.9 cm (2.3-3.9) LV ESV 86.9 ml LngAxd 8.96 cm LVESV BP 90 ml LngAxd 9.33 cm LV EF 57.7 % LV EDV 192 ml LV EF 48.8 % LV EDV 170 ml LV EF BP 51.1 % LVEDV BP 184 ml LV SV 111 ml LngAxs 7.34 cm LV SV 83 ml LngAxs 8.47 cm LV SV BP 94 ml LVPW LVPWd 1.2 cm Ventricular Septum IVSd 1.5 cm Left Atrium LA VOLBP 83.4 ml Aorta Ao Rtd 3.6 cm Ao Asc 3.6 cm (2.1-3.4)* LVOT LVOT 2 cm LVOTArea 3.14 cm2 Ratios IVS LA Biplane LAVol I BP 37.2 ml/m2 RA Single Plane Right Atrium MO 9.68 mm Right Atrium Sy 20.9 ml Right Atrium Sy 49.7 mm Right Atrium Sy 9.3 ml/m2 Right Atrium Sy 11 cm2 Right Ventricle Right Ventricle 33 mm Right Ventricle 22 mm Major [place] 62 mm MMODE TA Tricuspid Annul 17.5 mm <Electronic Signature> 09/22/2024 03:18 PM Selvin Gill M.D. Procedure Note Selvin Gill MD - 09/22/2024 Echocardiography Report Pat.Name: MANDIE SUAZO Pat.ID: [id number] .Date: 09/21/2024 : [id number] NATHAN PHILLIPS O EWDPROV EWDPROV Exam Time: 9:45:00 AM Study Type:ECHO WITH CARDIAC DOPPLER COMP Height: 71 in Weight: 230 lb BSA: 2.24 m2 Age: 4 1940,83Y Sex: M BP: 148/70 HR: 77 bpm Sonogrphr: Maria Guadalupe Ferris Pat. Stat.:Outpatient Reason for Study:Mitral regurgitation, Aortic regurgitation Procedures: 2D, M-mode, Doppler, Color Flow, Definity was used to enhance endocardial definition. The study quality is technically difficult. Race: W ++++++++++++++++++++++++++++++++++++ SUMMARY: ++++++++++++++++++++++++++++++++++++ The left ventricular size is normal. The left ventricular systolic function is mildly depressed. Estimated left ventricular ejection fraction is 45-50%. Moderate concentric left ventricular hypertrophy. Left ventricular diastolic function is abnormal (grade 2 - pseudonormal pattern). The right ventricular size is normal. Right ventricular systolic function is normal. The left atrial size is moderately enlarged. Mild aortic regurgitation. Moderate mitral regurgitation. Mild mitral valve stenosis. Calcified posterior mitral annulus. The mean gradient across the mitral valve is 4 at a heart rate of 70. Mild tricuspid regurgitation. The peak pulmonary artery systolic pressure is estimated to be approximately 35-40 mmHg suggestive of mild pulmonary hypertension. ++++++++++++++++++++++++++++++++++++ FINDINGS: ++++++++++++++++++++++++++++++++++++ LV: The left ventricular size is normal. The left ventricular systolic function is mildly depressed. Estimated left ventricular ejection fraction is 45-50%. Moderate concentric left ventricular hypertrophy. Left ventricular diastolic function is abnormal (grade 2 - pseudonormal pattern). RV: The right ventricular size is normal. Right ventricular systolic function is normal. IVS: No evidence of ventricular septal defect. LA: The left atrial size is moderately enlarged. The left atrial volume is moderately increased (42-48 ml/M2). RA: Right atrial size is normal. IAS: Atrial septum appears intact. ELIZABETH: No evidence of pericardial effusion. AO: Normal aortic root. PA: The peak pulmonary artery systolic pressure is estimated to be approximately 35-40 mmHg suggestive of mild pulmonary hypertension. Estimated right atrial pressure of 3 mmHg. SVn: Inferior vena cava is normal. AV: No evidence of aortic valve stenosis. Mild aortic regurgitation. Mild calcification of aortic valve leaflets. MV: Moderate mitral regurgitation. Mild mitral valve stenosis. Calcified posterior mitral annulus. The mean gradient across the mitral valve is 4 at a heart rate of 70. PV: No evidence of pulmonic valve stenosis. No evidence of pulmonic regurgitation. TV: Mild tricuspid regurgitation. No evidence of tricuspid valve stenosis. ++++++++++++++++++++++++++++++++++++ MEASUREMENTS: ++++++++++++++++++++++++++++++++++++ DOPPLER LVOT LVOTpkPG 3 mmHg LVOTmnPG 1 mmHg LVOTpkVel 83.1 cm/s (70-110) LVOT SV 52 ml LVOT TVI 16.5 cm AV Forward Flow AV TVI 29.3 cm AV pkPG 9 mmHg AV pkVel 148 cm/s (100-170) Area (TVI) 1.77 cm2 (3-5)* AV mnPG 4 mmHg Area (Hal) 1.76 cm2 (3-5)* MV Forward Flow MV DeTm 194 msec MV pkPG 9 mmHg MVA P1/2t 3.86 cm2 (4-6)* MV E/A 0.8 MV P1/2t 57 msec (30-60)+ MV pkE 113 cm/s (60-130) MV mnPG 4 mmHg MV pkA 141 cm/s MV Regurg Flow MV TVI 198 cm MV pkPG 130 mmHg MV mnPG 80 mmHg MV pkVel 570 cm/s (60-130)+* MV mnVel 418 cm/s PV Forward Flow PV pkVel 106 cm/s (60-90)* PV AC 114 msec PV pkPG 4 mmHg RVOT RVOTpkV 48.5 cm/s TV Regurg Flow TV pkPG 33 mmHg TV pkVel 287 cm/s (30-70)* TV Forward Flow TV E/A 0.7 TV pkA 57.5 cm/s TV pkE 38.7 cm/s Lat E' Lat e 8.16 cm/s Lat E/E' Lat E/e 13.8 Med E' Med e 5.77 cm/s Med E/E' Med E/e 19.6 Aortic Valve Aortic Valve Ar 0.79 Aortic Valve Ve 0.56 PV Antegrade Flow Acceleration Sl 427 cm/s2 Right Atrium Simmons's Disk 20 Right Ventricle Right Ventricle 16.4 cm/s 2D Left Ventricle LVIDd 4.5 cm (3.6-5.2) LV ESV 81.3 ml LVIDs 2.9 cm (2.3-3.9) LV ESV 86.9 ml LngAxd 8.96 cm LVESV BP 90 ml LngAxd 9.33 cm LV EF 57.7 % LV EDV 192 ml LV EF 48.8 % LV EDV 170 ml LV EF BP 51.1 % LVEDV BP 184 ml LV SV 111 ml LngAxs 7.34 cm LV SV 83 ml LngAxs 8.47 cm LV SV BP 94 ml LVPW LVPWd 1.2 cm Ventricular Septum IVSd 1.5 cm Left Atrium LA VOLBP 83.4 ml Aorta Ao Rtd 3.6 cm Ao Asc 3.6 cm (2.1-3.4)* LVOT LVOT 2 cm LVOTArea 3.14 cm2 Ratios IVS LA Biplane LAVol I BP 37.2 ml/m2 RA Single Plane Right Atrium MO 9.68 mm Right Atrium Sy 20.9 ml Right Atrium Sy 49.7 mm Right Atrium Sy 9.3 ml/m2 Right Atrium Sy 11 cm2 Right Ventricle Right Ventricle 33 mm Right Ventricle 22 mm Major [place] 62 mm MMODE TA Tricuspid Annul 17.5 mm <Electronic Signature> 09/22/2024 03:18 PM Selvin Gill M.D. Selvin Gill MD ECHO Final Res ult from Last 3 Months Insurance [facility] MEDICARE Advance Directives * Full Code (Latest Code Status on File) Date Activated Date Inactivated Comments 05/21/2022 11:08 AM 05/21/2022 1:57 PM * Full Code Date Activated Date Inactivated Comments 04/15/2022 10:08 AM 04/16/2022 1:21 PM Care Teams Security Incident Handler Relationship Specialty Start Date End Date Ashley Copeland MD [address] [facility] [address] [place] [address] PCP - General FAMILY PRACTICE 04/15/22 Victor Hugo Thomson MD [address] [address] Consulting Physician CLINICAL CARDIAC ELECTROPHYSIOLOGY 04/17/24
--- OUTSIDE RECORDS SUMMARY | 2024-09-26 16:17 | XMS_ITS | Encounter Summary ---
Author Organization [facility] Address [address] [place] [address] Care Team Providers Care Telecommunicator Supervisor Name Role Phone Ashley Copeland MD Primary Care Provider Victor Hugo Thomson MD Unavailable [phone] Encounter Details Date Type Department Care Team (Late st Contact Info) Description 09/08/2022 [employer] Message Enc [facility] [address] [address] [place], [facility] Provider Stress test Social History Tobacco Use Types Packs/Day Years [...] suspected to have Coronavirus/COVID-19? No / Unsure 09/08/2022 1:43 PM CDT documented as of this encounter Functional Status [...] CDT Cristian Bird C, R N Active * Do you have difficulty dressing or bathing? Answer Date of Assessment Author Status No 04/15/2022 8:00 PM CDT Cristian Bird C, R N Active * Because of a physical, mental, or emotional condition, do you have difficulty doing errands alone such as visiting a doctor's office or shopping? Answer Date of Assessment Author Status No 04/15/2022 8:00 PM CDT Cristian Bird C, R N Active documented as [...] Description 10/10/2024 2:45 PM CDT Office Visit [facility] [address] [place] [address] Selvin Gill MD [facility], [address] [place] [address] 11/08/2024 11:15 AM CDT Office Visit [facility], [facility] [address] [place] [address] Victor Hugo Thomson MD [facility] [address] [place] [address] 12/19/2024 2:05 PM CDT [facility] [address] [place] [address] Victor Hugo Thomson MD [facility]. [place] [address] [place] [address] documented as of this encounter Goals Goal [...] documented as of this encounter Care Teams Telecommunicator Supervisor Relationship Specialty Start Date End Date Ashley Copeland MD [address] [facility] [address] [place] [address] PCP - General FAMILY PRACTICE 04/15/22 Victor Hugo Thomson MD [facility]. [facility] [address] [place] [address] Consulting Physician CLINICAL CARDIAC ELECTROPHYSIOLOGY 04/17/24 documented as of this encounter
--- OUTSIDE RECORDS SUMMARY | 2024-09-26 16:17 | XMS_ITS | Clinical Summary ---
Author Organization [facility] [address] [place] [address] Address [address] [place] [address] Care Team Providers Care Automobile Radiator Mechanic Name Role Phone Ashley Copeland MD Primary Care Provider Allergies No known active allergies Medications testosterone cypionate (DEPO-TESTOSTE BRENDA) 200 mg/mL Oil Inject 1 mL by intramuscular injection every 30 days. 2 9 Active metoprolol succinate (TOPROL XL) 25 mg Extended Release 24 hour tablet Take 1 Tablet by mouth daily. 1 9 Active atorvastatin (LIPITOR) 40 mg tablet Take 1 Tablet by mouth daily. 3 9 Active ELIQUIS 5 mg tablet Take 1 Tablet by mouth 2 times daily. 1 9 Active amiodarone (CORDARONE) 200 mg tablet Take 1 Tablet by mouth daily. 11 9 Active multivitamins- minerals-lutei n (VITRUM SENIOR) Tablet Take 1 Tablet by mouth daily. Active aspirin (ECOTRIN EC) 81 mg Tablet, Delayed Release (E.C.) Take 81 mg by mouth daily. Active valsartan (DIOVAN) 160 mg tablet Take 1 Tablet by mouth daily. 0 Active Active Problems Patient Care Coordination No te Formatting of this note migh t be different from the original. Dr. 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 01/19/2019 Family History Medical History Relation Name Comments Heart Disease Neg Hx Stroke Neg Hx Social History Tobacco Use Types Packs/Day Years Used Date Smoking Tobacco: Former Cigarettes Smokeless Tobacco: Never Alcohol Use Standard Drinks/Week Comments Yes 0 (1 standard drink = 0.6 oz pur e alcohol) Sex and Gender Information Value Date Recorded Sex Assigned at Not on file Legal Sex Male 10:38 PM CDT Gender Identity Not on file Sexual Orientation Not on file Last Filed Vital Signs Vital Sign Reading Time Taken Comments Blood Pressure 158/68 01/19/2019 9:58 AM CDT Pulse 67 01/19/2019 9:58 AM CDT Temperature - - Respiratory Rate - - Oxygen Saturation 90% 01/19/2019 9:58 AM CDT Inhaled Oxygen Concentration - - Weight 99.3 kg (219 lb) 01/19/2019 9:58 AM CDT Height 182.9 cm (6') 01/19/2019 9:58 AM CDT Body Mass Index 29.7 01/19/2019 9:58 AM CDT Plan of Treatment Health Maintenance Due Date Last Done Comments DTAP/TDAP/TD VACCINES (1 - Tdap) 1961 ZOSTER VACCINE (1 of 2) 1992 PNEUMOCOCCAL VACCINE 50+ YEA RS (2 of 2 - PCV) 2014 2013 RSV VACCINE (60+ or ) (1 - 1-dose 75+ series) 2017 INFLUENZA VACCINE (#1) 2024 COVID-19 Vaccine (3 - 2023- season) 2024, 08/14/2020 Insurance MEDICARE PART A AND B BCBS SUPP Care Teams Automobile Radiator Mechanic Relationship Specialty Start Date End Date Ashley Copeland MD [address] [place] [address] PCP - General Family Practice 12/29/18
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
--- OUTSIDE RECORDS SUMMARY | 2024-09-26 16:17 | XMS_ITS | Encounter Summary ---
Author Organization [facility] Address [address] [place] [address] Care Team Providers Care Assessment Director Name Role Phone Ashley Copeland MD Primary Care Provider Victor Hugo Thomson MD Unavailable [phone] Encounter Details Date Type Department Care Team (Late st Contact Info) Description 07/14/2022 Abstract [facility] [address] [address] Kaci Bellamy MA Social History Tobacco Use Types Packs/Day Years [...] suspected to have Coronavirus/COVID-19? 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 documented as of this encounter Functional Status [...] Description 10/10/2024 2:45 PM CDT Office Visit [facility] [address] [place] [address] Selvin Gill MD [facility], [address] [place] [address] 11/08/2024 11:15 AM CDT Office Visit [facility], [facility] [address] [place] [address] Victor Hugo Thomson MD [facility] [address] [place] [address] 12/19/2024 2:05 PM CDT Allied Health/Nurse Visit [facility], [facility] [address] [place] [address] Victor Hugo Thomson MD Three [facility] [address] [place] [address] documented as of this encounter Goals Goal Patient Goal Type Associated Problems Recent Progress Patient-Stated? Author Patient will return to prior living situation and remain independent in ADLs upon discharge from hospital Lifestyle No Melba Sumner RN documented as of this encounter Procedures Procedure Name Priority Date/Time Associated Diagnosis Comments COMPREHENSIVE METABOLIC PANEL Routine 07/22/2022 COMPREHENSIVE METABOLIC PANEL Routine 07/01/2022 documented in this encounter Results * (ABNORMAL) COMPREHENSIVE METABOLIC PANEL (07/22/2022) SODIUM S/P/B 141 GLUCOSE 116 mg/dL BUN 25 CREATININE S/P/B 1.4(A) 0.7 - 1.3 CALCIUM S/P/B 9.4 POTASSIUM S/P/B 4.9 CHLORIDE S/P/B 107 GFR ESTIMATE 51.1 us Default History Genericprovider LABORATORY Edited Result - Final * COMPREHENSIVE METABOLIC PANEL (07/01/2022) SODIUM S/P/B 140 GLUCOSE 111 mg/dL BUN 20 CREATININE S/P/B 1.3 0.7 - 1.3 CALCIUM S/P/B 9.7 POTASSIUM S/P/B 5.0 CHLORIDE S/P/B 106 GFR ESTIMATE 55.9 us Default History Genericprovider LABORATORY Edited Result - Final documented in this encounter Visit Diagnoses Not on filedocumented in this encounter Additional Health Concerns Infection Onset Date Last Indicated Resolved Time COVID-19 Rule Out 11/27/2022 11/27/2022 11/27/2022 6:03 PM CDT documented as of this encounter Care Teams Assessment Director Relationship Specialty Start Date End Date Ashley Copeland MD [address] [facility] [address] [place] [address] PCP - General FAMILY PRACTICE 04/15/22 Victor Hugo Thomson MD [facility]. [address] [address] Consulting Physician CLINICAL CARDIAC ELECTROPHYSIOLOGY 04/17/24 documented as of this encounter
[2024-09-26 20:11] LABS: Alanine Aminotransferase 22 U/L (6-50); Alkaline Phosphatase 73 U/L (38-126); Anion Gap 5 mmol/L (4-12); Aspartate Amino Transferase 48 U/L (17-59); Bilirubin,Total 0.6 mg/dL (0.2-1.3); Blood Urea Nitrogen 30 mg/dL (9-20); Calcium 9.4 mg/dL (8.4-10.2); Carbon Dioxide 28 mmol/L (22-30); Chloride 106 mmol/L (98-107); Estimated Glomerular Filt Rate 44; Glucose 85 mg/dL (65-110); Potassium 5.3 mmol/L (3.4-5.0); Sodium 139 mmol/L (137-145)
[2024-09-26 21:54] LABS: Hemoglobin A1C 5.7 % (<5.7)
== END 2024-09-26 14:14 | disposition home or self-care (01) ==
LOC: ANHGOSHLAB 14:15
PROVIDERS: PCP Family Medicine; Visit Provider Family Medicine
DX: R73.03 Prediabetes (principal); I10 Essential (primary) hypertension
CPT/HCPCS: 36415; 80053; 83036

== ENCOUNTER 2024-12-28 15:41 | Outpatient (CLI) | payer MEDICARE, SELFPAY ==
--- NOTE | ~2024-12-28 | XR_ITS ---
Left Knee Technique: AP, lateral, and sunrise views were obtained. Clinical History: Pain Findings: No fracture or dislocation is seen. There is moderate to advanced degenerative change of th e lateral compartment. There is moderate degenerative change of the patellofemoral compartment. There is mild degenerative change of the medial compartment.. Small joint effusion is seen. 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 Reviewed, dictated and finalized at location M. Impression: Tricompartmental degenerative change, as above, worst in the lateral compartmen t.
== END 2024-12-28 15:42 | disposition home or self-care (01) ==
LOC: GOSHIMG 15:41
PROVIDERS: PCP Family Medicine; Visit Provider Family Medicine
DX: M17.12 Unilateral primary osteoarthritis, left knee (principal)
CPT/HCPCS: 73564

== ENCOUNTER 2025-03-01 11:23 | Outpatient (CLI) | payer MEDICARE, SELFPAY ==
--- NOTE | ~2025-03-01 | XR_ITS ---
EXAMINATION: XR knee LT min 4V, 03/01/2025 11:40 CDT HISTORY: PAIN IN LEFT KNEE COMPARISON: No comparisons available. Findings: No acute fracture or malalignment. Moderate to severe tricompartmental degenerative changes with small effusions Soft tissues unremarkable. Impression: No acute fracture or malalignment. Reviewed, dictated and finalized at location A. Impression: No acute fracture or malalignment.
== END 2025-03-01 11:24 | disposition home or self-care (01) ==
PROVIDERS: PCP Family Medicine; Visit Provider Orthopaedic Surgery
DX: M25.562 Pain in left knee (principal); G89.29 Other chronic pain
CPT/HCPCS: 73564

== ENCOUNTER 2025-04-06 10:37 | Outpatient (CLI) | payer MEDICARE, SELFPAY ==
[2025-04-06 11:25] LABS: Hematocrit 44.2 % (42.0-52.0); Hemoglobin 14.4 g/dL (14.0-18.0); Immature Granulocyte Percent A 0.3 % (0-0.5); Lymphocytes Absolute Auto 1.32 K/mm3 (0.9-3.2); Mean Corpuscular HGB Conc 32.6 g/dl (32-36); Mean Corpuscular Hemoglobin 34.7 pg (26-34); Mean Corpuscular Volume 106.5 fl (80-100); Nucleated Red Blood Cells Absolute Auto 0.000 K/mm3 (0.0-0.012); Nucleated Red Blood Cells Perc 0.0 % (0.0-0.2); Platelet Count Result 172 k/mm3 (150-375); Red Blood Count 4.15 M/mm3 (4.6-6.20); White Blood Count 6.0 K/mm3 (4.5-10.0)
[2025-04-06 11:47] LABS: Alanine Aminotransferase 22 U/L (6-50); Albumin Level 4.3 g/dL (3.5-5.1); Alkaline Phosphatase 64 U/L (38-126); Anion Gap 7 mmol/L (4-12); Aspartate Amino Transferase 33 U/L (17-59); Bilirubin,Total 0.8 mg/dL (0.2-1.3); Blood Urea Nitrogen 20 mg/dL (9-20); Calcium 9.9 mg/dL (8.4-10.2); Carbon Dioxide 27 mmol/L (22-30); Chloride 104 mmol/L (98-107); Cholesterol 176 mg/dL (0-200); Estimated Glomerular Filt Rate > 60; Glucose 121 mg/dL (65-110); HDL Direct 59 mg/dL; Potassium 4.8 mmol/L (3.4-5.0); Sodium 138 mmol/L (137-145); Total Protein 7.6 g/dL (6.3-8.2); Triglycerides 95 mg/dL (<150)
[2025-04-06 12:17] LABS: Thyroid Stimulating Hormone Reflex 1.060 uIU/mL (0.465-4.68)
[2025-04-06 20:36] LABS: Prostate Specific Antigen 1.1 ng/mL (< OR = 4.0)
[2025-04-06 20:57] LABS: Vitamin B12 769.0 pg/mL (239-931)
[2025-04-06 20:59] LABS: Hemoglobin A1C 5.8 % (<5.7)
[2025-04-07 07:10] LABS: FSH 10.4 mIU/mL (1.5-12.4); LH 8.6 mIU/mL (1.7-8.6)
[2025-04-09 14:08] LABS: Free Testosterone (Direct) 8.4 pg/mL (6.6-18.1)
== END 2025-04-06 10:38 | disposition home or self-care (01) ==
PROVIDERS: PCP Family Medicine; Visit Provider Family Medicine
DX: I10 Essential (primary) hypertension (principal); Z00.00 Encounter for general adult medical examination without abnormal findings; R73.03 Prediabetes; E55.9 Vitamin D deficiency, unspecified; E78.5 Hyperlipidemia, unspecified; E53.8 Deficiency of other specified B group vitamins; Z12.5 Encounter for screening for malignant neoplasm of prostate
CPT/HCPCS: 36415; 80053; 80061; 82306; 82607; 83001; 83002; 83036; 84153; 84402; 84403; 84443; 85025; G0103

== ENCOUNTER 2025-04-07 10:22 | Outpatient (CLI) | payer MEDICARE, SELFPAY ==
--- NOTE | ~2025-04-07 | US_ITS ---
EXAMINATION: US aorta DATE: 04/07/2025 12:33 INDICATION: Infrarenal abdominal aortic aneurysm without rupture. TECHNIQUE: Grayscale, color Doppler, and pulsed Doppler images of the aorta and common iliac arteries were obtained. COMPARISON: Ultrasound 01/31/2022 FINDINGS: The aorta demonstrates a 3.4 cm fusiform infrarenal aneurysm. The right common iliac artery is normal in caliber. The left common iliac artery is normal in caliber. IMPRESSION: 1. Stable 3.4 cm fusiform aneurysm of infrarenal aorta. Reviewed, dictated and finalized at location E.
--- NOTE | ~2025-04-07 | US_ITS ---
Clinical History: I65.29 - Occlusion and stenosis of unspecified carotid ar... Examination: US carotid duplex BI Comparison: Carotid duplex 02/08/2021 Technique: Grayscale, color, duplex/spectral Doppler sonography carotid and vertebral arteries. Distal CCA and Peak ICA systolic velocities provided. Society of Radiologists in Ultrasound (SRU) consensus criteria utilized, indirectly assessing stenosis by velocities. Findings: Known left ICA occlusion. History of right CEA. Right side: CCA - 82 cm/sec. ICA - 86 cm/sec. ICA/CCA - 1.0 Left Side: CCA - 78 cm/sec. ICA -occluded Normal antegrade flow measured bilateral vertebral arteries. IMPRESSION: 1. No hemodynamically significant right ICA stenosis (i.e., if any stenosis, less than 50%). 2. Chronic left ICA occlusion. 3. Normal bilateral antegrade vertebral artery flow. Stenosis measured by Society of Radiologists in Ultrasound (SRU) criteria. Reviewed, dictated and finalized at location R. IMPRESSION: 1. No hemodynamically significant right ICA stenosis (i.e., if any stenosis, l ess than 50%). 2. Chronic left ICA occlusion. 3. Normal bilateral antegrade vertebral artery flow. Stenosis measured by Society of Radiologists in Ultrasound (SRU) criteria.
--- OUTSIDE RECORDS SUMMARY | 2025-04-07 11:01 | XMS_ITS | Encounter Summary ---
Author Organization [facility] Address [address] [place] [address] Care Team Providers Care Bargeman Name Role Phone Ashley Copeland MD Primary Care Provider Victor Hugo Thomson MD Unavailable [phone] Encounter Details Date Type Department Care Team (Late st Contact Info) Description 09/08/2022 [employer] Message Enc [facility] [address] [address] [place], 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 [address] [place] [address] 11/14/2025 10:30 AM CDT Office Visit [facility] THREE [facility], [address] [place] [address] Giovanna Arriaga PA 3 [facility] [address] [place] [address] documented as of this encounter Goals Goal [...] documented as of this encounter Care Teams Bargeman Relationship Specialty Start Date End Date Ashley Copeland MD [address] [facility] [address] [place] [address] PCP - General FAMILY PRACTICE 04/15/22 Victor Hugo Thomson MD Three [facility]. [address] [place] [address] Consulting Physician CLINICAL CARDIAC ELECTROPHYSIOLOGY 04/17/24 documented as of this encounter
--- OUTSIDE RECORDS SUMMARY | 2025-04-07 11:02 | XMS_ITS | Clinical Summary ---
Author Organization [facility] Address [address], [facility] [address] [place] [address] Phone Care Team Providers Care Oracle Dba Name Role Phone Marty Ortiz MD Primary Care Provider [phone] Sebastian Pina DO Unavailable Allergies No known active allergies Medications polyethylene [...] 1942 Zoster Immunization (1 of 2) 1992 Medicare Initial AWV [id number] 09/20/2008 Respiratory Syncytial Virus (RSV) Immunization (Adult) (1 - 1-dose 75+ series) 2017 Pneumococcal Immunization (5 0+ years) (2 of 2 - PCV20 or PCV21) 01/26/2021 01/27/2020 Influenza Immunization (#1) 2025 10/0 06/2019, 04/24/2017 SARS-COV-2 Immunization (4 - season) 2025 05/20/2021, 09/11/2020, 08/14/2020 DTaP/Tdap/Td Immunization Discontinued 01/04/2020 TdaP Immunization Completed 01/04/2020 Pneumococcal Immunization Combined Discontinued 01/27/2020 Hepatitis B Immunization Aged Out No longer eligible based on patient's age to complete this topic Human Papillomavirus (HPV) Immunization Aged Out No longer eligible based on patient's age to complete this topic Meningococcal Immunization (ACWY) Aged Out No longer eligible based on patient's age to complete this topic Rotavirus Immunization Aged Out No lo nger eligible based on patient's age to complete this topic [place] [address] MEDICARE [facility] Care Teams Oracle Dba Relationship Specialty Start Date End Date Marty Ortiz MD [address] [place] [address] PCP - General Family Medicine 03/27/16 Sebastian Pina DO [address] [place] [address] Gastroenterology 03/27/16
--- OUTSIDE RECORDS SUMMARY | 2025-04-07 11:02 | XMS_ITS | Clinical Summary ---
Author Organization [employer] [address] [place] [address] Address [address] [place] [address] Care Team Providers Care Supervisor Receiving And Processing Name Role Phone Ashley Copeland MD Primary [...] 1-dose 75+ series) 2017 INFLUENZA VACCINE (#1) 2025 COVID-19 Vaccine (3 - 2024- season) 2025, 08/14/2020 Insurance MEDICARE PART A AND B BCBS SUPP Care Teams Supervisor Receiving And Processing Relationship Specialty Start Date End Date Ashley Copeland MD [address] [place] [address] PCP - General Family Practice 12/29/18
--- OUTSIDE RECORDS SUMMARY | 2025-04-07 11:02 | XMS_ITS | Encounter Summary ---
Author Organization [facility] Address [address] [place] [address] Care Team Providers Care Galley Boy Name Role Phone Ashley Copeland MD Primary Care Provider Victor Hugo Thomson MD Unavailable [phone] Encounter Details Date Type Department Care Team (Late st Contact Info) Description 07/28/2022 [employer] Message Enc [facility] [address] [address] [facility] Provider lab results Social History Tobacco Use [...] Coronavirus/COVID-19? 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 documented as of this encounter Functional Status [...] Description 04/17/2025 9:45 AM CDT Office Visit [facility] [address] [place] [address] Selvin Gill MD [facility], [address] [place] [address] 06/18/2025 2:15 PM CERTIFIED PHYSICAL THERAPIST ASSISTANT Allied Health[facility] [address] [place] [address] Victor Hugo Thomson MD [facility] [address] [place] [address] 06/19/2025 2:30 PM CERTIFIED PHYSICAL THERAPIST ASSISTANT Allied Health/Nurse [facility] [address] [place] [address] Victor Hugo Thomson MD Three [facility]. [address] [place] [address] 11/14/2025 10:30 AM CDT Office Visit [facility], [place] [address] [place] [address] Giovanna Arriaga PA 3 [facility] [address] [place] [address] documented as of this encounter Goals Goal [...] documented as of this encounter Care Teams Galley Boy Relationship Specialty Start Date End Date Ashley Copeland MD [address] [facility] [address] [place] [address] PCP - General FAMILY PRACTICE 04/15/22 Victor Hugo Thomson MD Three [facility]. [facility] [address] [place] [address] Consulting Physician CLINICAL CARDIAC ELECTROPHYSIOLOGY 04/17/24 documented as of this encounter
--- OUTSIDE RECORDS SUMMARY | 2025-04-07 11:02 | XMS_ITS | Encounter Summary ---
Author Organization [facility] Address [address] [place] [address] Care Team Providers Care Biomedical Specialist Name Role Phone Ashley Copeland MD Primary Care Provider Victor Hugo Thomson MD Unavailable [phone] Encounter Details Date Type Department Care Team (Late st Contact Info) Description 07/14/2022 Abstract [facility], [address] [address] Kaci Bellamy MA Social History [...] Coronavirus/COVID-19? 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, [facility] [address] [place] [address] 06/18/2025 2:15 PM PHARMACY DISTRICT MANAGER Allied Health/Nurse Visit [facility] [address] [place] [address] Victor Hugo Thomson MD [facility] [address] [place] [address] 06/19/2025 2:30 PM PHARMACY DISTRICT MANAGER [facility] [address] [place] [address] Victor Hugo Thomson MD Three [facility]. [address] [place], [place] [address] 11/14/2025 10:30 AM CDT Office Visit [facility] THREE [facility], [place] [place], [place] [address] Giovanna Arriaga PA 3 [facility] [address] [place], [place] [id number] documented as of this encounter Goals Goal Patient Goal Type Associated Problems Recent Progress Patient-Stated? Author Patient will return to prior living situation and remain independent in ADLs upon discharge from hospital Lifestyle Melba Godwin RN documented as of this encounter Procedures [...] documented as of this encounter Care Teams Biomedical Specialist Relationship Specialty Start Date End Date Ashley Copeland MD [address] [facility] [address] [place] [address] PCP - General FAMILY PRACTICE 04/15/22 Victor Hugo Thomson MD [address] [address] Consulting Physician CLINICAL CARDIAC ELECTROPHYSIOLOGY 04/17/24 documented as of this encounter
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
--- OUTSIDE RECORDS SUMMARY | 2025-04-07 11:02 | XMS_ITS | Encounter Summary ---
Author Organization [facility] Address [address] [place] [address] Care Team Providers Care Fuller Brush Man Name Role Phone Ashley Copeland MD Primary Care Provider Encounter Details Date Type Department Care Team (Late st Contact Info) Description 12/21/2017 Orders Only [facility] Health Information Management [address] [place] [address] Scanning, Provider Social History Tobacco Use Types Packs/Day Years Used Date Smoking Tobacco: Never Smokeless Tobacco: Never Alcohol Use Standard Drinks/Week Comments Yes 8 (1 standard drink = 0.6 oz pur e alcohol) Sex and Gender Information Value Date Recorded Sex Assigned at Not on file 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 Gender Identity Male 04/01/2021 4:10 PM CDT Sexual Orientation Straight 04/01/2021 4: 10 PM CDT documented as of this encounter Plan of Treatment Not on file documented as of this encounter Procedures Procedure Name Priority Date/Time Associated Diagnosis Comments CARDIOLOGY DOCUMENT SCAN 12/21/2017 documented in this encounter Results * Cardiology Document Scan (12/21/2017) Anatomical Region Laterality Modality Other us Provider Scanning CV CARDIAC SERVICES PROCEDURES Final Result documented in this encounter Visit Diagnoses Not on filedocumented in this encounter Care Teams Fuller Brush Man Relationship Specialty Start Date End Date Ashley Copeland MD PCP - General Family Practice 10/21/17 documented as of this encounter
--- OUTSIDE RECORDS SUMMARY | 2025-04-07 11:02 | XMS_ITS | Clinical Summary ---
Author Organization [facility] Address [address] [place] [address] Care Team Providers Care Horser Up Name Role Phone Slade Ortiz MD Primary Care Provider [phone] Source Comments [employer],non-owned Affiliates and Associated Physician Practices is amultiple site organization consisting of ambulatory clinics and hospital sitesin [place], [place], [place] and [place]. This disclosure is being madepursuant to the Care Everywhere program and may not contain all information available regarding this patient. Last updated 18.[employer] Allergies No known active allergies Medications * Be aware that medications may not be up to date on this document. Alwaysverify current medications with the patient. 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
--- OUTSIDE RECORDS SUMMARY | 2025-04-07 11:02 | XMS_ITS | Clinical Summary ---
Author Organization [facility] Address [address] [place] [address] Care Team Providers Care Cafe Attendant Name Role Phone Ashley Copeland MD Primary Care Provider Victor Hugo Thomson MD Unavailable Allergies No known active allergies Medications testosterone [...] Take 1 tablet by mouth daily. Active diphenhydrAMIN E (BENADRYL) 25 MG capsule Take 2 capsules (50 mg total) by mouth nightly as needed for Sleep. Active acetaminophen (TYLENOL) 325 MG tablet Take 2 tablets (650 mg total) by mouth every 6 (six) hours as needed for Pain. Active vitamin B-12 (B-12) 500 MCG tablet Take 1 tablet (500 mcg total) by mouth daily. Active FLUoxetine (PROZAC) 20 MG capsule Take 1 capsule (20 mg total) by mouth daily. 4 Active Pyridoxine HCl (B-6) 100 MG Tab Active gabapentin (NEURONTIN) 300 MG capsule 5 Active oxybutynin XL (DITROPAN-XL) 5 MG 24 hr tablet Take 1 tablet (5 mg total) by mouth daily. 5 Active apixaban (ELIQUIS) 2.5 MG tablet Take 1 tablet by mouth twice daily 180 tablet 1 5 Active Ferrous Sulfate (IRON) 325 (65 Fe) MG tablet Take 325 mg by mouth daily with breakfast. 3 Active amiodarone (PACERONE) 200 MG tablet Take 1 tablet by mouth once daily 90 tablet 1 5 Active amLODIPine (NORVASC) 5 MG tablet Take 1 tablet by mouth once daily 90 tablet 5 Active amLODIPine (NORVASC) 5 MG tablet Take 1 tablet by mouth once daily 90 tablet 1 5 025 Discontinued Active Problems Problem Noted Date Diagnosed Date Moderate aortic regurgitation 09/08/2022 Cardiac pacemaker 04/24/2022 Overview (04/24/2022): MDT ZOË PACEMAKER IMPLANTED 04/15/22 FOR [facility]B Complete heart block 04/24/2022 Overview (04/24/2022): MDT ZOË PACEMAKER IMPLANTED 04/15/22 FOR CHB Bradycardia 04/15/2022 Idiopathic peripheral neuropathy 08/02/2021 Dizziness 12/19/2020 Dyspnea on exertion 12/19/2020 Aneurysm of infrarenal abdominal aorta 8 Atrial fibrillation 11/12/2017 Bilateral carotid artery disease 11/12/2017 Diastolic dysfunction without heart failure 10/21 Dyslipidemia 11/12/2017 Essential hypertension 11/12/2017 Non-rheumatic mitral regurgitation 11/12/2017 ELI on CPAP 11/12/2017 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 Cerebral infarction 10/15/2013 Encounters Date Type Department Care Team Description 03/20/2025 Travel 03/19/2025 2:15 PM CDT Allied Health/Nurse Visit Giovanni Dumont-Janine gibbs [facility], [place] [place] [address] Victor Hugo Thomson MD Remote Device Check from Last 3 Months Immunizations Immunization Administration Dates Next Due Influenza Adult (Generic) 05/28/2021,03/22/2020, 04/24/2017 MODERNA COVID-19 (DIRECTOR OF CARDIOPULMONARY SERVICES BRIGIDA ENZO), MRNA, LNP-S, PF, 50 MCG/ 0.25 ML DOSE 05/20/2021 Pneumococcal (Pneumovax 23) 2013 Pneumococcal (Prevnar 13) 01/27/2020 Pneumococcal (Prevnar 20) 01/31/2022 Tdap (Generic) 01/04/2020 Social History Tobacco Use Types Packs/Day Years Used Date Smoking Tobacco: Former Cigarettes Q uit: 04/26/2015 Alcohol Use Standard Drinks/Week Comments Not Currently 0 (1 standard drink = 0.6 oz pur e alcohol) Sex and Gender Information Value Date Recorded Sex Assigned at Male 10/30/2023 7:57 AM CDT Legal Sex Male 8:28 AM CDT Gender Identity Not on file Sexual Orientation Bisexual 10/30/2023 7: 57 AM CDT Last Filed Vital Signs Vital Sign Reading Time Taken Comments Blood Pressure 136/82 11/08/2024 11:03 AM CDT Pulse 89 11/08/2024 11:03 AM CDT Temperature 36.9 C (98.5 F) 11/27/2022 3:04 PM CDT Respiratory Rate 20 11/27/2022 8:10 PM CDT Oxygen Saturation 96% 11/08/2024 11:03 AM CDT Inhaled Oxygen Concentration - - Weight 101.2 kg (223 lb) 11/08/2024 11:03 AM CDT Height 180.3 cm (5' 11) 11/08/2024 11:03 AM CDT Body Mass Index 31.1 11/08/2024 11:03 AM CDT Plan of Treatment Upcoming Encounters Date Type Department Care Team (Late st Contact Info) Description 04/17/2025 9:45 AM CDT Office Visit [facility] [address] [place] [address] Selvin Gill MD [address] [facility] [address] [place] [address] 06/18/2025 2:15 PM INSTITUTE DIRECTOR Allied Health/Nurse Visit [facility] THREE [facility], [place] [place] [address] Victor Hugo Thomson MD Three [facility]. [address] [place] [address] 06/19/2025 2:30 PM INSTITUTE DIRECTOR Allied Health/Nurse Visit [facility] THREE [facility], [email or web address] [address] [place] [address] Victor Hugo Thomson MD Three [facility]. [facility] [address] [place] [address] 11/14/2025 10:30 AM CDT Office Visit [facility] THREE [facility], [facility] [[email or web address]] [address] [place] [address] Giovanna Arriaga PA [address] [facility] [address] [place] [address] Health Maintenance Due Date Last Done Comments Annual Medicare Wellness Visit 10/13/2007 Zoster Vaccines (2 of 3) 03/02/2008 01/06/2008 RSV Immunization or 60+ Years (1 - 1-dose 75+ series) 2017 PHQ-2 (Physician [place]) 06/22/2024 COVID-19 Vaccine ( - 2024-2 6 season) 2025 05/20/2021, 09/11/2020, 08/14/2020 Influenza Adult (#1) 2025 05/28/2021, 03/22/2020, 04/24/2017 DTaP, Tdap and Td Vaccines ( 2 - Td or Tdap) 01/03/2030 01/04/2020, 01/03/2008 Pneumococcal Vaccine: 50+ Years Completed 01/31/2022, 01/27/2020, 2013 Hepatitis A Vaccines Aged Out No long er eligible based on patient's age to complete this topic Meningococcal B Vaccine Aged Out No l [...] Sumner RN Medical Devices Implanted Type Area Lab Support Service Tech Device Identifier Shelf Expiration Date Model / Serial / Lot Ra Lead-04/15/20 Implanted: by Tristen Lloyd MD (Quantity not on file) Lead Implant [employer] FAILURE - DIV M 5076-52 / [id number] / Description:APPENDAGE Rv Lead-04/15/20 Implanted: by Tristen Lloyd MD (Quantity not on file) Lead Implant [employer] C[employer]HY[employer] HE[employer] FAILURE - DIV M 5076-58 / [id number] / t Pacemaker- Implanted: by Tristen Lloyd MD (Quantity not on file) Pacemaker [employer]HY[employer] HE[employer] FAILURE - DIV M [id number] / [id number] / Description:PATIENT WANTS TO BE FOLLOWED AT [facility] MEDICARE Advance Directives * Full Code (Latest Code Status on File) Date Activated Date Inactivated Comments 05/21/2022 11:08 AM 05/21/2022 1:57 PM * Full Code Date Activated Date Inactivated Comments 04/15/2022 10:08 AM 04/16/2022 1:21 PM Care Teams Cafe Attendant Relationship Specialty Start Date End Date Ashley Copeland MD [address] [facility] [address] [place] [address] PCP - General FAMILY PRACTICE 04/15/22 Victor Hugo Thomson MD [address] [address] Consulting Physician CLINICAL CARDIAC ELECTROPHYSIOLOGY 04/17/24
== END 2025-04-07 10:23 | disposition home or self-care (01) ==
PROVIDERS: PCP Family Medicine; Visit Provider Family Medicine
DX: I65.22 Occlusion and stenosis of left carotid artery (principal); I71.43 Infrarenal abdominal aortic aneurysm, without rupture
CPT/HCPCS: 76775; 93880